=== PATIENT | male | born 1960 | race Caucasian/White ===

== ENCOUNTER → 2018-07-21 | Outpatient (CLI) | payer OTHER ==
--- NOTE | 2018-07-21 16:34 | KCIC ---
EXAM: AP, lateral and lumbosacral spot views of the lumbar spine DATE: 07/21/2018 12:00 AM INDICATION: Bilateral buttock pain and low back pain. History of lumbar stenosis. COMPARISON: CT abdomen and pelvis 10/11/2014 FINDINGS: There is approximately 6 mm anterolisthesis of L3 on L4. There is approximately 3 mm retrolisthesis of L2 on L3 and L1 on L2. Moderate disc height loss at T12-L1 and L1-L2 and moderate to severe disc height loss at L3-4. Moderate facet degenerative changes are seen at L2-3 and below. There is mild height loss of the T11 and T12 vertebral bodies, suggesting age-indeterminate compression fractures. IMPRESSION: 1. There is mild height loss of the T11 and T12 vertebral bodies, suggesting age-indeterminate compression fractures but not definitely seen on prior CT 10/11/2014. This can be correlated with patient's symptoms and if clinically indicated further evaluation with MRI. 2. Multilevel listhesis and degenerative changes as above Electronically signed by: Erich Vieira MD (07/21/2018 4:31 PM) [id number]
--- NOTE | 2018-07-21 16:36 | KCIC ---
EXAM: AP and frog-leg lateral views of both hips DATE: 07/21/2018 12:00 AM INDICATION: Bilateral hip pain-bilateral buttock pain for 3-4 months. COMPARISON: No Prior FINDINGS: Joint spaces are preserved without significant degenerative/proliferative change. Subtle chondrocalcinosis is noted at both hip joints. Degenerative changes of the symphysis pubis. No evidence of acute fracture or dislocation. Mild iliac crest enthesopathy. Vasectomy clips are seen. IMPRESSION: 1. No evidence of acute fracture or dislocation. 2. Hip joint and symphysis pubis degenerative changes are seen with bilateral hip joint chondrocalcinosis Electronically signed by: Erich Vieira MD (07/21/2018 4:33 PM) [id number]
== END | disposition home or self-care (01) ==
LOC: KCIC 15:49
PROVIDERS: ATTEND Family Medicine
DX: M51.36 Other intervertebral disc degeneration, lumbar region (principal); M43.16 Spondylolisthesis, lumbar region; M11.252 Other chondrocalcinosis, left hip; M11.251 Other chondrocalcinosis, right hip; M16.0 Bilateral primary osteoarthritis of hip; M76.22 Iliac crest spur, left hip; M76.21 Iliac crest spur, right hip; R29.890 Loss of height
CPT/HCPCS: 72100; 73502

== ENCOUNTER → 2019-09-18 | Outpatient (CLI) | payer OTHER ==
--- NOTE | 2019-09-18 15:46 | KCIC ---
PA and lateral chest x-ray without comparison for bronchi at the left lung base. FINDINGS: There is no definite pneumonic infiltrate, though early consolidation may be radiographically occult. No pneumothorax, pleural effusion, or congestive heart failure. Heart size within normal limits. No significant osseous abnormalities. IMPRESSION: 1. No definite pneumonic infiltrate to account clinical presentation. Very early consolidation may be radiographically occult however. Electronically signed by: Don Little MD (09/18/2019 3:43 PM) [id number]
== END | disposition home or self-care (01) ==
LOC: KCIC 15:25
PROVIDERS: ATTEND Family Medicine
DX: R09.89 Other specified symptoms and signs involving the circulatory and respiratory systems (principal); R05 Cough
CPT/HCPCS: 71046

== ENCOUNTER 2021-06-27 06:11 | Day surgery (SDC) | payer OTHER ==
[~2021-06-27] VITALS: Ht 167.6 cm; Wt 108.6 kg
[~2021-06-27 06:11] MED LIST: HYDROmorphone 2 MG/ML VIAL IVP PRN; IBUP-1007 PO; IV RINGERS,LACTATED 1000ML 1,000 ML IV SCH; LOSA1TAB19 PO; MORPHINE SULFATE 2 MG/ML INJ. IVP PRN; MULT-121 PO; PANT20TA2 PO; PROCHLORPERAZINE 10 MG/2 ML VIAL. IVP PRN; TAMS0.4C97 PO; fentaNYL PF VIAL 100 MCG/2 ML VIAL IVP PRN
[2021-06-27] MEDS ORDERED: LIDOCAINE 1% PF 30 ML VIAL. ONE (06:39)
[2021-06-27] MEDS ORDERED: PROPOFOL 10 MG/ML (20ML) VIAL. IV ONE (06:42)
[2021-06-27] MEDS ORDERED: MIDAZOLAM HCL/PF 2 MG/2 ML VIAL. ONE (06:43)
[2021-06-27] MEDS ORDERED: LIDOCAINE 2% PF 5 ML VIAL. ONE (07:03)
[2021-06-27] MEDS ORDERED: DEXAMETHASONE SOD PHOS 20 MG/5 ML VIAL. ONE (07:03)
[2021-06-27] MEDS ORDERED: fentaNYL PF VIAL 100 MCG/2 ML VIAL ONE (07:05)
[2021-06-27] MEDS ORDERED: BUPIVACAINE MPF 0.25% 30 ML VIAL. ONE (07:05)
[2021-06-27] MEDS ORDERED: HYDR-2765 PO (07:40)
--- NOTE | 2021-06-27 07:43 | DISCH ---
DISCHARGE INSTRUCTIONS Condition on Discharge Condition on Discharge: Stable Activity After Discharge Activity Instructions for Disc: Other, see below (Avoid hard grasping, may perform fine motor use such as eating writing typing) Weight Bearing Status after Di: Non weight bearing Diet after Discharge Diet after Discharge: Regular Wound Incision Care Wound/Incision Care: Ice to area for comfort, Keep wound elevated, Do not change dressing (Keep dressing intact for protection unless wet or soiled) Contacting the DR. after DC Call your doctor for: Concerns you may have Follow-Up Follow up with: Jignesh 10 days ALMA ACOSTA MD Jun 27, 2021 07:43
--- NOTE | 2021-06-27 08:14 | PDOC4 ---
Operative Note Operative Note Date of surgery: 06/27/2021 Preoperative diagnosis: Right carpal tunnel syndrome Postoperative diagnosis: Same with severe median nerve compression Operative procedure: Right carpal tunnel release Surgeon: Nelson Policyholder Information Clerk: Martin rodriguez Anesthesia: Zoila block Estimated blood loss 1 cc Complications: None Operative indications: Patient is a 60-year-old male with EMG confirmed right carpal tunnel syndrome median sensory and motor changes. I had gone over with him the possibility of continued pain nerve or blood vessel damage incomplete relief sensitivity at the incision medical or other anesthesia complications among others all his questions were answered he wishes to proceed with surgical evaluation and treatment. Patient agrees with this treatment plan as well Operative text: Patient was identified procedure verified patient placed in the supine position on the operating table. After adequate amounts of general anesthesia were administered the right upper extremity was prepped and draped in standard sterile fashion and after timeout was performed patient procedure identified and verified, an incision was made just distal to the distal wrist crease dissection carried out down to the transverse carpal ligament which was divided sharply and completely divided proximally and distally with tenotomy scissors under direct vision and complete release verified visually and palpably. Median nerve was noted to have moderate to severe compression and no synovitis or compromise of the flexor tendons was noted. Thorough irrigation carried out normal saline solution and skin closure accomplished with nylon suture in a vertical mattress fashion. Sterile soft dressings were then applied patient was returned to recovery room stable condition having tolerated procedure well. Martin rodriguez was present for the procedure and assisted in patient positioning prepping draping retraction closure and dressings ALMA ACOSTA MD Jun 27, 2021 08:14
[2021-06-27 08:39] VITALS: BP 130/86
[2021-06-27] MEDS ORDERED: HYDROcodone/APAP 7.5/325MG 1 TAB TABLET PO ONE (08:45)
== END 2021-06-27 09:05 | disposition home or self-care (01) ==
LOC: SURG 06:11
PROVIDERS: ATTEND Orthopaedic Surgery
DX: G56.01 Carpal tunnel syndrome, right upper limb (principal); I10 Essential (primary) hypertension; G47.30 Sleep apnea, unspecified; K21.9 Gastro-esophageal reflux disease without esophagitis; M19.90 Unspecified osteoarthritis, unspecified site; Z79.899 Other long term (current) drug therapy; Z88.1 Allergy status to other antibiotic agents; Z72.89 Other problems related to lifestyle
CPT/HCPCS: 64721; A4930; A6402; J0690; J1100; J2250; J2704; J3010; J3490; A4223; A4657; A6452